=== PATIENT | female | born 1980 | race Caucasian/White ===

== ENCOUNTER 2024-09-24 17:51 | Observation (INO) ==
--- NOTE | 2024-09-24 18:03 | Emergency Department Note ---
HPI - Chest Pain General Chief Complaint: Chest Pain Stated Complaint: chest pain Time Seen by Provider: 09/24/24 17:58 Source: patient Mode of arrival: walk-in Limitations: no limitations History of Present Illness HPI narrative: This is a 43 year old female patient that presents to the ER with c/o chest pain today. Patient denies any SOB, back pain, abdominal pain, fever, chills, numbness, tingling, weakness or N/V MD complaint: Reports chest pain Onset (ago): hour(s) (4) Timing of current episode: Reports episodic Prior episodes: No Pain location: Reports substernal Pain radiation: Reports none Severity: mild Quality: Reports tightness Relieving factors: Reports nothing Exacerbating factors: Reports nothing Risk Factors Coronary artery disease risk factors: Reports family history of CAD before age 50 Related Data Home Medications Medication Instructions Recorded Confirmed No Known Home Medication 09/24/24 09/24/24 Allergies Allergy/AdvReac Type Severity Reaction Status Date / Time No Known Drug Allergies Allergy Verified 09/24/24 18:22 Review of Systems Status of ROS 10 or more systems reviewed and unremark able except as noted in history and below Constitutional Denies: fever, chills, change in weight, fatigue, malaise or night sweats Eyes Denies: change in vision, blurry vision or blind spots Ears, nose, mouth, and throat Denies: throat pain, neck pain, throat swelling, difficulty swallowing, hoarseness or mouth pain Cardiovascular Reports: chest pain; Denies: palpitations, edema, swelling of feet/ankles, lightheadedness, shortness of breath with exertion or shortness of breath when lying down Respiratory Denies: shortness of breath, cough, wheezing, stridor or pain on inspiration Gastrointestinal Denies: abdominal pain, nausea, vomiting, coffee grounds in vomit, heartburn or diarrhea Genitourinary Denies: painful urination, urinary frequency, urinary urgency, urinary incontinence, blood in urine or difficulty voiding Musculoskeletal Denies: back pain, neck pain, extremity pain, extremity swelling, joint pain, limited range of motion or joint swelling Integumentary/Breast Denies: rash, itching, redness, skin pain, skin tenderness or skin swelling Neurological Denies: headache, numbness in extremities, weakness in extremities or lack of coordination Psychiatric Denies: anxiety, mood swings, panic attacks, change in sleep pattern or hopelessness Endocrine Denies: excessive urination, excessive thirst, fatigue, cold intolerance or excessive sweating Hematologic/Lymphatic Denies: easy bruising, easy bleeding or enlarged lymph nodes Exam Constitutional: normal general appearance Vital Signs - 24 hr 09/24/24 17:55 09/24/24 17:55 09/24/24 18:02 Temperature 98.1 F Pulse Rate 71 70 Respiratory Rate 20 20 Blood Pressure 159/74 159/74 Pulse Oximetry 100 100 99 Oxygen Delivery Me thod Room Air Room Air Room Air 09/24/24 18:17 09/24/24 18:30 Temperature Pulse Rate 74 69 Respiratory Rate 21 15 Blood Pressure 123/53 120/63 Pulse Oximetry 100 99 Oxygen Delivery Me thod Room Air Room Air HENMT: normocephalic, head/scalp atraumatic, hearing grossly normal bilaterally, external ears normal, nasal mucous membranes normal, external nose normal, oral mucous membranes normal and oropharynx normal Eyes: PERRL, EOMs intact bilaterally, conjunctivae normal and no scleral icterus Neck/C-Spine: visual inspection normal and trachea midline Lymph: no lymphadenopathy noted Chest: inspection of chest normal Respiratory: breath sounds equal bilaterally, normal respiratory effort, clear to auscultation bilaterally, no wheezes, no rales, no retractions and no use of accessory muscles Cardiovascular: normal heart rate noted, regular rhythm noted, no gallop, no rub, no murmur, no JVD, no clicks, peripheral pulses 2+ throughout and no additional abnormal heart sounds Gastrointestinal: abdomen normal to inspection, abdomen soft to palpation, nontender to palpation, nontender to percussion, nondistended, normoactive bowel sounds, no hepatosplenomegaly, no masses, no pulsatile mass, no ascites and no hernia Genitourinary: no CVA tenderness Back/Pelvis: spine normal to inspection Extremities: normal to inspection, normal to palpation, no tenderness, full ROM, no joint enlargement and no deformity Neurology: no movement abnormality noted, no sensory deficits noted, gait normal, speech normal, coordination normal, no fasciculations noted and GCS normal Psychiatry: mental status grossly normal, oriented x3, thought process normal, cooperative, affect normal, psychomotor activity normal and memory normal Skin: skin color normal Course Course Hospital Course: 1837: due to risk factors, family hx will admit patient to the hospital for further evaluation and treatment. VSS. No s/s of acute distress noted Vital Signs Vital signs: Vital Signs Temperature 98.1 F 09/24/24 17:55 Pulse Rate 71 09/24/24 17:55 Respiratory Rate 20 09/24/24 17:55 Blood Pressure 159/74 09/24/24 17:55 Pulse Oximetry 100 09/24/24 17:55 Oxygen Delivery Method Room Air 09/24/24 17:55 Temperature 98.1 F 09/24/24 17:55 Pulse Rate 69 09/24/24 18:30 Respiratory Rate 15 09/24/24 18:30 Blood Pressure 120/63 09/24/24 18:30 Pulse Oximetry 99 09/24/24 18:30 Oxygen Delivery Method Room Air 09/24/24 18:30 MDM - Chest Pain Differential Diagnosis Differential diagnosis: Likely stable angina Medical Records Data Attestation: I reviewed the patient's medical records. Lab Data Attestation: I reviewed the patient's lab results. Labs: Lab Results 09/24/24 Range/Units 18:05 WBC 6.3 (4.3-9.3) K/uL RBC 4.1 (4.00-5.50) M/uL Hgb 12.5 (12.5-15.8) gm/dL Hct 37.1 (35.9-46.7) % MCV 91.2 (81.0-93.7) fl MCH 30.7 (27.6-32.2) pg MCHC 33.7 (33.1-35.3) g/dl RDW 13.3 (11.4-14.2) % Plt Count 323 (152-353) K/uL MPV 7.2 (6.9-10.8) fl Gran % 51.9 (47.8-71.3) % Lymph % (Auto) 37.6 (20.0-43.0) % Payne % (Auto) 8.5 (3.6-9.8) % Eos % (Auto) 1.2 (0.4-2.8) % Baso % (Auto) 0.8 (0.1-0.85) Lymph # (Auto) 2.4 (1.1-3.1) Payne # (Auto) 0.5 L (1.1-3.1) Eos # (Auto) 0.1 (0.0-0.2) Baso # (Auto) 0.1 (0.0-0.1) Absolute Gran (auto) 3.3 (2.3-6.0) D-Dimer <100 L (100-600) ng/mL Sodium 140 (136-145) mmol/L Potassium 3.7 (3.6-5.2) mmol/L Chloride 102.0 (98-107) mmol/L Carbon Dioxide 30 (21-32) mmol/L Anion Gap 8.0 (4-14) mEq/L BUN 14 (7-18) mg/dL Creatinine 0.9 (0.6-1.3) mg/dL Estimated GFR 82.4 (>59.9) Glucose 84 (70-110) mg/dL Calcium 9.3 (8.5-10.1) mg/dL Total Bilirubin 0.79 (0.0-1.0) mg/dL AST 14 L (15-37) U/L ALT 17 L (30-65) U/L Alkaline Phosphatase 75 (50-136) U/L Troponin I High Sens <4.00 L (4.0-60.4) ng/L Total Protein 8.1 (6.4-8.2) g/dL Albumin 4.2 (3.4-5.0) g/dL Urine Test Negative (Negative) Imaging Data Imaging ordered: Chest x-ray Attestation: I personally reviewed and interpreted this imaging study as follows: My impression: cxr: NAD ECG Data Attestation: I have reviewed the pertinent ECG results. Discharge Plan Discharge Patient Disposition: Admitted As Observation Condition: Stable Clinical Impression: Chest pain Time of Disposition: 19:03 [facility] Surgical History (Updated 09/24/24 @ 18:25 by Isi Craig RN) History of left oophorectomy Social History Smoking status: former smoker Second hand tobacco smoke exposure: No Within the past year, how often did you have a drink containing alcohol: never Within the past year, how often did you have six or more drinks on one occasion: never Score interpretation: A score less than 3 is consistent with normal alcohol consumption. Non-prescribed substance use: denies use What is your current living situation: I presently have a place to live Problems where you live: no known problems In the past 12 months, utilities in danger of being shut off: no In past 12 months, lack of transportation kept you from medical appts, meetings, work, or getting things needed for daily living: No How hard is it for you to pay for the very basics like food, housing, medical care, and heating: not applicable Past 12 mos, fear food will run out before able to buy more: never true In past 12 months, food didn't last until money to buy more: never true Are you following a special diet: No Do you want help finding or keeping work or a job: I do not need or want help Known occupational exposures/hazards: No Do you want help with school or training: No Caffeine: No How often does anyone, including family, friends and others, physically hurt you : never How often does anyone, including family, friends and others, insult or talk down to you: never How often does anyone, including family, friends and others, threaten you with harm: never How often does anyone, including family, friends and others, scream or curse at you: never Firearms in home: no Do you need help with ADLs: I don't need any help Due to a physical, mental, or emotional condition, do you have difficulty doing errands alone such as visiting a doctor's office or shopping: No Little interest or pleasure in doing things: not at all Feeling down, depressed, or hopeless: not at all Feel stressed/tense/nervous/anxious/difficulty sleeping: only a little Life stressors: other Life stressor details: 1 Due to disability, difficulty making decisions: No Do you think of yourself as: straight/heterosexual Gender Identity: female Are you currently sexually active: No service: No
[2024-09-24 18:14] LABS: Basophils #(Absolute) Auto 0.1 (0.0-0.1); Basophils%(Percent) Auto 0.8 (0.1-0.85); Eosinophils#(Absolute)Auto 0.1 (0.0-0.2); Eosinophils%(Percent) Auto 1.2 % (0.4-2.8); Granulocytes % - Auto 51.9 % (47.8-71.3); Granulocytes#(Absolute)- Auto 3.3 (2.3-6.0); Hematocrit 37.1 % (35.9-46.7); Mean Corpuscular Volume 91.2 fl (81.0-93.7); Monocytes #(Absolute)- Auto 0.5 (1.1-3.1); Monocytes %(Percent)- Auto 8.5 % (3.6-9.8); Platelet Count 323 K/uL (152-353); White Blood Count 6.3 K/uL (4.3-9.3)
[2024-09-24 18:35] LABS: Potassium 3.7 mmol/L (3.6-5.2)
[2024-09-24] MEDS: NITROGLYCERIN 1 GM OINT...G. TD ONE (19:02)
[2024-09-24] MEDS: ASPIRIN 81 MG TAB.CHEW PO ONE (19:02)
[2024-09-24 19:27] VITALS: PULSE 60
[2024-09-24] MEDS ORDERED: ACETAMINOPHEN 325 MG TABLET PO PRN (20:29)
[2024-09-24] MEDS ORDERED: MORPHINE SULFATE 2 MG/ML CARTRIDGE IV PRN (20:29)
[2024-09-24] MEDS ORDERED: NITROGLYCERIN 0.4 MG TAB.SUBL (BOTTLE) SL PRN (20:29)
[2024-09-24] MEDS: ENOXAPARIN SODIUM 60 MG/0.6 ML SYRINGE SUBQ SCH (22:31)
[2024-09-25 04:13] LABS: Basophils #(Absolute) Auto 0.1 (0.0-0.1); Basophils%(Percent) Auto 0.8 (0.1-0.85); Eosinophils#(Absolute)Auto 0.1 (0.0-0.2); Eosinophils%(Percent) Auto 1.1 % (0.4-2.8); Granulocytes % - Auto 47.8 % (47.8-71.3); Granulocytes#(Absolute)- Auto 3.4 (2.3-6.0); Hematocrit 33.8 % (35.9-46.7); Monocytes #(Absolute)- Auto 0.6 (1.1-3.1); Monocytes %(Percent)- Auto 8.8 % (3.6-9.8); Platelet Count 313 K/uL (152-353)
[2024-09-25 06:06] LABS: Carbon Dioxide 28 mmol/L (21-32); Glucose 89 mg/dL (70-110); Sodium 141 mmol/L (136-145)
[2024-09-25 07:58] VITALS: BP 107/65; RESP 19; TEMP 97.7
--- NOTE | 2024-09-25 14:40 | Short Stay Summary ---
H&P: HPI History of Present Illness Chief complaint: CHEST PAIN Narrative: This is a 43 year old female patient that presents to the ER with c/o chest pain today. Patient denies any SOB, back pain, abdominal pain, fever, chills, numbness, tingling, weakness or N/V. Admitted patient to med/surg for observation and treatment. Review of Systems Status of ROS 10 or more systems reviewed and unremark able except as noted in history and below Constitutional Denies: fever, chills, change in weight, fatigue, malaise or night sweats Eyes Denies: change in vision, blurry vision or blind spots Ears, nose, mouth, and throat Denies: throat pain, neck pain, throat swelling, difficulty swallowing, hoarseness or mouth pain Cardiovascular Reports: chest pain; Denies: palpitations, edema, swelling of feet/ankles, lightheadedness, shortness of breath with exertion or shortness of breath when lying down Respiratory Denies: shortness of breath, cough, wheezing, stridor or pain on inspiration Gastrointestinal Denies: abdominal pain, nausea, vomiting, coffee grounds in vomit, heartburn, diarrhea or difficulty swallowing Genitourinary Denies: painful urination, urinary frequency, urinary urgency, urinary incontinence, blood in urine or difficulty voiding Musculoskeletal Denies: back pain, neck pain, extremity pain, extremity swelling, joint pain, limited range of motion or joint swelling Integumentary/Breast Denies: rash, itching, redness, skin pain, skin tenderness or skin swelling Neurological Denies: headache, numbness in extremities, weakness in extremities or lack of coordination Psychiatric Denies: anxiety, mood swings, panic attacks, change in sleep pattern or hopelessness Endocrine Denies: excessive urination, excessive thirst, fatigue, cold intolerance or excessive sweating Hematologic/Lymphatic Denies: easy bruising, easy bleeding or enlarged lymph nodes Allergic/Immunologic Denies: throat swelling or wheezing PFSH PFS Medical History (Updated 09/25/24 @ 13:59 by HERMAN Moser) Family history of early CAD Surgical History (Updated 09/24/24 @ 18:25 by Isi Craig RN) History of left oophorectomy Social History Smoking status: former smoker Second hand tobacco smoke exposure: No Within the past year, how often did you have a drink containing alcohol: never Within the past year, how often did you have six or more drinks on one occasion: never Score interpretation: A score less than 3 is consistent with normal alcohol consumption. Non-prescribed substance use: denies use What is your current living situation: I presently have a place to live Problems where you live: no known problems In the past 12 months, utilities in danger of being shut off: no In past 12 months, lack of transportation kept you from medical appts, meetings, work, or getting things needed for daily living: No How hard is it for you to pay for the very basics like food, housing, medical care, and heating: not applicable Past 12 mos, fear food will run out before able to buy more: never true In past 12 months, food didn't last until money to buy more: never true Are you following a special diet: No Do you want help finding or keeping work or a job: I do not need or want help Known occupational exposures/hazards: No Highest level of school completed/degree received: decline to answer Do you want help with school or training: No Caffeine: No How often does anyone, including family, friends and others, physically hurt you : never How often does anyone, including family, friends and others, insult or talk down to you: never How often does anyone, including family, friends and others, threaten you with harm: never How often does anyone, including family, friends and others, scream or curse at you: never Firearms in home: no Do you need help with ADLs: I don't need any help Due to a physical, mental, or emotional condition, do you have difficulty doing errands alone such as visiting a doctor's office or shopping: No Little interest or pleasure in doing things: not at all Feeling down, depressed, or hopeless: not at all Feel stressed/tense/nervous/anxious/difficulty sleeping: only a little Life stressors: other Life stressor details: 1 Due to disability, difficulty making decisions: No Do you think of yourself as: straight/heterosexual Gender Identity: female Are you currently sexually active: No service: No Meds Home Medications and Allergies Home Medications Medication Instructions Recorded Confirmed Type aspirin 81 mg tablet,delayed 81 mg PO DAILY chest pain #30 tabs 09/25/24 Rx release chlorpheniramine maleate 4 mg 4 mg PO Q6H PRN allergy symptoms 09/25/24 09/25/24 History tablet (Aller-Chlor) [id number]-acetaminophen 2 cap PO Q4H PRN sinus symptoms 09/25/24 09/25/24 History 6.25 mg-5 mg-10 mg-325 mg capsule (Angélica-Newberry Plus Nidsx-Xgogldi-Llf) famotidine 40 mg tablet (Pepcid) 40 mg PO BID gerd #30 tabs 09/25/24 Rx fluticasone furoate 27.5 1 spray intranasal DAILY sinusitis 09/25/24 Rx mcg/actuation nasal #18.2 mL spray,suspension (Flonase Sensimist) levocetirizine 5 mg tablet 5 mg PO DAILY sinusitis #30 tabs 09/25/24 Rx levofloxacin 500 mg tablet 500 mg PO DAILY sinusitis #7 tabs 09/25/24 Rx Allergies Allergy/AdvReac Type Severity Reaction Status Date / Time No Known Drug Allergies Allergy Verified 09/24/24 18:22 Exam Exam: Patient in Rob's position upon entering room for exam. Constitutional: normal general appearance, no apparent distress, average body habitus, no limitations and alert Vital Signs - 24 hr 09/24/24 17:55 09/24/24 17:55 09/24/24 18:02 Temperature 98.1 F Pulse Rate 71 70 Pulse Rate [Right] Respiratory Rate 20 20 Blood Pressure 159/74 159/74 Blood Pressure [Le ft Arm] Pulse Oximetry 100 100 99 Oxygen Delivery Me thod Room Air Room Air Room Air 09/24/24 18:17 09/24/24 18:30 09/24/24 19:00 Temperature 98.1 F Pulse Rate 74 69 60 Pulse Rate [Right] Respiratory Rate 21 15 15 Blood Pressure 123/53 120/63 127/67 Blood Pressure [Le ft Arm] Pulse Oximetry 100 99 99 Oxygen Delivery Pa thod Room Air Room Air Room Air 09/24/24 19:33 09/24/24 20:29 09/24/24 20:30 Temperature 98.5 F 98.1 F Pulse Rate 60 Pulse Rate [Right] 60 Respiratory Rate 21 15 Blood Pressure 127/67 Blood Pressure [Le ft Arm] 110/57 Pulse Oximetry 100 [facility] 09/24/24 22:30 11/21/24 07:56 Temperature 97.7 F Pulse Rate Pulse Rate [Right] 60 Respiratory Rate 19 Blood Pressure 110/57 Blood Pressure [Le ft Arm] 107/65 Pulse Oximetry 100 Oxygen Delivery Me thod Room Air HENMT: normocephalic, head/scalp atraumatic, hearing grossly normal bilaterally, external ears normal, nasal mucous membranes normal, external nose normal, oral mucous membranes normal and oropharynx normal Eyes: PERRL, EOMs intact bilaterally, conjunctivae normal and no scleral icterus Neck/C-Spine: visual inspection normal and trachea midline Lymph: no lymphadenopathy noted Chest: inspection of chest normal Respiratory: breath sounds equal bilaterally, normal respiratory effort, clear to auscultation bilaterally, no wheezes, no rales, no retractions and no use of accessory muscles Cardiovascular: normal heart rate noted, regular rhythm noted, no gallop, no rub, no murmur, no JVD, no clicks, peripheral pulses 2+ throughout and no additional abnormal heart sounds Gastrointestinal: abdomen normal to inspection, abdomen soft to palpation, nontender to palpation, nontender to percussion, nondistended, normoactive bowel sounds, no hepatosplenomegaly, no masses, no pulsatile mass, no ascites and no hernia Genitourinary: no CVA tenderness Back/Pelvis: spine normal to inspection Extremities: normal to inspection, normal to palpation, no tenderness, full ROM, no joint enlargement and no deformity Neurology: no movement abnormality noted, no sensory deficits noted, gait normal, speech normal, coordination normal, no fasciculations noted and GCS normal Psychiatry: mental status grossly normal, oriented x3, thought process normal, cooperative, affect normal, psychomotor activity normal and memory normal Skin: skin color normal Assessment and Plan Assessment and Plan (1) Angina at rest: Code(s): I20.89 - Other forms of angina pectoris (2) Acute pansinusitis: Qualifiers: Recurrence: not specified as recurrent Qualified Code(s): J01.40 - Acute pansinusitis, unspecified Code(s): J01.40 - Acute pansinusitis, unspecified (3) Otalgia, left ear: Code(s): H92.02 - Otalgia, left ear (4) Chronic left maxillary sinusitis: Code(s): J32.0 - Chronic maxillary sinusitis (5) Esophageal spasm: Code(s): K22.4 - Dyskinesia of esophagus (6) Dyspnea: Qualifiers: Dyspnea type: unspecified Qualified Code(s): R06.00 - Dyspnea, unspecified Code(s): R06.00 - Dyspnea, unspecified (7) GERD with esophagitis: Qualifiers: Esophagitis bleeding: unspecified whether hemorrhage Qualified Code(s): K21.00 - Gastro-esophageal reflux disease with esophagitis, without bleeding Code(s): K21.00 - Gastro-esophageal reflux disease with esophagitis, without bleeding Plan Aspirin 324 mg PO ONCE Nitroglycerin 1 gm TD ONCE Acetaminophen 650 mg PO Q4H PRN Nitroglycerin 0.4 mg SL ONCE PRN Morphine Sulfate 2 mg IV Q6H PRN Enoxaparin Sodium 60 mg SUBQ Q12H Patient acute symptoms and problems have resolved and returned to baseline. Hospital stay has been uneventful, yet beneficial for patient. Recommendation of outpatient Echocardiogram and Nuclear Stress Test, both of which will be set up by her PCP. Results Labs Labs: CBC WBC 7.0 K/uL (4.3-9.3) 09/25/24 05:10 RBC 3.7 M/uL (4.00-5.50) L 09/25/24 05:10 Hgb 11.6 gm/dL (12.5-15.8) L 09/25/24 05:10 Hct 33.8 % (35.9-46.7) L 09/25/24 05:10 MCV 91.0 fl (81.0-93.7) 09/25/24 05:10 MCH 31.2 pg (27.6-32.2) 09/25/24 05:10 MCHC 34.2 g/dl (33.1-35.3) 09/25/24 05:10 RDW 13.1 % (11.4-14.2) 09/25/24 05:10 Plt Count 313 K/uL (152-353) 09/25/24 05:10 MPV 8.3 fl (6.9-10.8) 09/25/24 05:10 Gran % 47.8 % (47.8-71.3) 09/25/24 05:10 Lymph % (Auto) 41.5 % (20.0-43.0) 09/25/24 05:10 [place] % (Auto) 8.8 % (3.6-9.8) 09/25/24 05:10 Eos % (Auto) 1.1 % (0.4-2.8) 09/25/24 05:10 Baso % (Auto) 0.8 (0.1-0.85) 09/25/24 05:10 Lymph # (Auto) 2.9 (1.1-3.1) 09/25/24 05:10 [place] # (Auto) 0.6 (1.1-3.1) L 09/25/24 05:10 Eos # (Auto) 0.1 (0.0-0.2) 09/25/24 05:10 Baso # (Auto) 0.1 (0.0-0.1) 09/25/24 05:10 Absolute Gran (auto) 3.4 (2.3-6.0) 09/25/24 05:10 BMP Sodium 141 mmol/L (136-145) 09/25/24 05:10 Potassium 4.0 mmol/L (3.6-5.2) 09/25/24 05:10 Chloride 105.0 mmol/L (98-107) 09/25/24 05:10 Carbon Dioxide 28 mmol/L (21-32) 09/25/24 05:10 Anion Gap 8.0 mEq/L (4-14) 09/25/24 05:10 BUN 15 mg/dL (7-18) 09/25/24 05:10 Creatinine 0.7 mg/dL (0.6-1.3) 09/25/24 05:10 Estimated GFR 111.4 (>59.9) 09/25/24 05:10 Glucose 89 mg/dL (70-110) 09/25/24 05:10 Calcium 9.0 mg/dL (8.5-10.1) 09/25/24 05:10 Magnesium 2.0 mg/dL (1.8-2.4) 09/24/24 18:05 Total Bilirubin 0.82 mg/dL (0.0-1.0) 09/25/24 05:10 AST 11 U/L (15-37) L 09/25/24 05:10 ALT 11 U/L (30-65) L 09/25/24 05:10 Alkaline Phosphatase 59 U/L (50-136) 09/25/24 05:10 Total Protein 7.2 g/dL (6.4-8.2) 09/25/24 05:10 Albumin 3.7 g/dL (3.4-5.0) 09/25/24 05:10 Cardiac Enzymes Troponin I High Sens <4.00 ng/L (4.0-60.4) L 09/25/24 05:10 Liver Function Total Bilirubin 0.82 mg/dL (0.0-1.0) 09/25/24 05:10 AST 11 U/L (15-37) L 09/25/24 05:10 ALT 11 U/L (30-65) L 09/25/24 05:10 Alkaline Phosphatase 59 U/L (50-136) 09/25/24 05:10 Total Protein 7.2 g/dL (6.4-8.2) 09/25/24 05:10 Albumin 3.7 g/dL (3.4-5.0) 09/25/24 05:10 Imaging Imaging ordered: Chest x-ray Radiologist's impression: XR CHEST 1V Date of Service: 09/24/24 HISTORY: CHEST PAIN; LEFT ARM NUMBNESS; CV COMPARISON: No relevant prior studies were available for comparison at the time of interpretation. TECHNIQUE: XR CHEST 1V FINDINGS: Chest: Lines and tubes: Cardiac leads overlie the chest. Mediastinum: Cardiac and mediastinal shadow is within normal limits for size and contour. Pulmonary vessels: No pulmonary vascular congestion. Lung barrera: No suspicious airspace opacity. Pleura: No effusion. No pneumothorax. Bones and soft tissues: No acute osseous or soft tissue abnormality. IMPRESSION: 1. No acute cardiopulmonary abnormality DS: Providers Provider Date of admission: 09/24/24 19:00 Primary care physician: NO PCP Provider Admitting clinician: Domenica Robison Attending physician on admission: Tish Finley Attending physician on discharge: Tish Finley Discharging clinician: Tish Finley Anticipated date of discharge: 09/25/24 DS: Summary Hospital Course Hospital Course: This is a 43 year old female patient that presents to the ER with c/o chest pain today. Patient denies any SOB, back pain, abdominal pain, fever, chills, numbness, tingling, weakness or N/V. Admitted patient to med/surg for observation and treatment. Patient has responded well to treatment plan, hospital stay has been uneventful, yet beneficial for patient. Patient acute symptoms and problems have resolved and returned to patient's baseline. It is recommended the patient undergo an outpatient Nuclear Stress Test and outpatient Echocardiogram due to chest pain episode and family history of heart disease. Follow up appointment with PCP within 5-7 days of discharge is recommended. Status at Discharge Functional status at discharge: independent ambulation Overall status at discharge: patient is back to baseline Time Spent with Patient Time attestation: Total time spent providing and/or coordinating discharge services: Time spent: greater than 30 minutes Discharge Plan Discharge Disposition: Home, Self-Care Condition: Stable Discharge Medications: New aspirin 81 mg tablet,delayed release (DR/EC) 81 mg PO DAILY Qty: 30 0RF famotidine [Pepcid] 40 mg tablet 40 mg PO BID Qty: 30 0RF levofloxacin 500 mg tablet 500 mg PO DAILY Qty: 7 0RF levocetirizine 5 mg tablet 5 mg PO DAILY Qty: 30 0RF Flonase Sensimist 27.5 mcg/actuation spray,suspension 1 spray intranasal DAILY Qty: 18.2 0RF Rx Instructions: into each nostril No Action chlorpheniramine maleate [Aller-Chlor] 4 mg tablet 4 mg PO Q6H PRN (Reason: allergy symptoms) Angélica-Newberry Plus Knh-Qixj-Vjl 6.25-5-10-325 mg capsule 2 cap PO Q4H PRN (Reason: sinus symptoms) Discharge Orders: Discharge Order (Routine); Ordered 09/25/24 Ordered By: Tish Finley Activity: increase activity as tolerated and return to school once cleared by your PCP/specialist Diet: low fat, low cholesterol Diet Detail: avoid peppers and hot sauce and do small frequent meals Interventions: Discharge Assessment Last Done: 09/25/24 12:44 MED/SURG & ICU Observation Charge Sheet Last Done: 09/25/24 12:51 Patient Instructions: Low-Sodium Diet (ED) Activity Restrictions/Additional Instructions: avoid peppers and hot sauce and do small frequent meals See PCP from List since does not have one or Dr Arnett in [place] appointment if patient wants to go with the people from the [facility] as that is who they generally use in the next week, schedule ECHO and a nuclear stress test keep a BP, Journal and if chest pain occurs with time of start and stop and activities and medicine to help and if pain recurrs and persists or greater than a 6 should return to the nearest ER. avoid allergens and extreme temps and contacts. monitor for increase swelling and recurring left ear pain secondary to sinus infection. No steroids now secondary to esophagitis but may be needed at follow up or if worsening Forms: Portal/Health Info Access Inst Follow-Ups: Provider,NO PCP [Primary Care Provider] - Discharge Date/Time: 09/25/24 13:27
== END 2024-09-25 13:27 | disposition home or self-care (01) ==
LOC: MS 17:51 → ED 17:51 → MS 20:31
PROVIDERS: ADMIT Nurse Practitioner Family; ATTEND Family Medicine